=== PATIENT | female | born 1990 | race Caucasian/White ===

== ENCOUNTER 2017-12-02 19:32 | Emergency (ER) | payer MEDICAID ==
[~2017-12-02] VITALS: Ht 170.2 cm; Wt 136.4 kg
[2017-12-02 19:51] VITALS: Ht 170.2 cm; Wt 136.4 kg
[2017-12-02] MEDS ORDERED: VRAYLAR3 MG PO (19:52)
[2017-12-02] MEDS ORDERED: CELEXA40 MG PO (19:52)
[2017-12-02 21:26] LABS: APPEARANCE CLEAR (CLEAR); BILIRUBIN NEGATIVE (NEGATIVE); COLOR YELLOW (YELLOW); GLUCOSE NEGATIVE (NEGATIVE); HCG URINE NEGATIVE (NEGATIVE); KETONE NEGATIVE (NEGATIVE); NITRITE NEGATIVE (NEGATIVE); PROTEIN NEGATIVE (NEGATIVE); SPECIFIC GRAVITY 1.025 (1.005-1.020); UROBILINOGEN NORMAL (NORMAL)
[2017-12-02 21:27] LABS: RED CELLS - URINE 0-5 /hpf (0-5)
[2017-12-02 21:29] LABS: BACTERIA MODERATE /hpf (NONE SEEN); EPITHELIAL CELLS 0-5 /hpf (0-5)
[2017-12-02 21:47] LABS: BASOPHILS 0.2 % (0-2); EOSINOPHILS 1.2 % (0-7); HEMATOCRIT 39.3 % (36.0-48.0); IMMATURE GRANULOCYTES 0.1 % (0-5); LYMPHOCYTES 26.8 % (15-50); MCH 28.6 pg (26.0-34.0); MCHC 33.1 g/dL (31.0-37.0); MCV 86.6 fL (80.0-100.0); MEAN PLATELET VOLUME 8.8 fL (7.4-10.4); NEUTROPHILS 64.7 % (40-80); PLATELET COUNT 328 10x3/uL (130-400); RBC 4.54 10x6/uL (4.00-5.40); RDW 13.7 % (11.5-14.5); WBC 10.9 10x3/uL (4.8-10.8)
[2017-12-02 22:01] LABS: ALBUMIN 3.1 g/dL (3.4-5.0); ALKALINE PHOSPHATASE 70 U/L (46-116); ALT (SGPT) 48 U/L (10-68); BILIRUBIN - TOTAL 0.16 mg/dL (0.2-1.3); CALC OSMOLALITY 276 mosm/kg (275-300); CALCIUM 8.8 mg/dL (8.5-10.1); CHLORIDE - SERUM 102 mmol/L (98-107); CREATININE - SERUM 0.8 mg/dL (0.6-1.3); GLUCOSE 86 mg/dL (74-106); POTASSIUM - SERUM 3.8 mmol/L (3.5-5.1); PROTEIN - SERUM 6.8 g/dL (6.4-8.2); SODIUM 140 mmol/L (136-145); UREA NITROGEN 9 mg/dL (7-18); eGFR NON AFRICAN AMERICAN > 90 mL/min (90-120)
[2017-12-02] MEDS ORDERED: MACROBID100 MG PO (22:09)
[2017-12-02 22:43] VITALS: BP 108/57
== END 2017-12-02 22:31 | disposition home or self-care (01) ==
LOC: D.ER 19:32
PROVIDERS: Family Medicine
DX: N39.0 Urinary tract infection, site not specified (principal); N89.8 Other specified noninflammatory disorders of vagina; F17.200 Nicotine dependence, unspecified, uncomplicated

== ENCOUNTER 2019-10-24 09:12 | Day surgery (SDC) | payer MEDICARE ==
[2019-10-22 10:16] LABS: HEMATOCRIT 39.2 % (36.0-48.0); HEMOGLOBIN 12.8 g/dL (12-16); MCH 27.8 pg (26.0-34.0); MCHC 32.7 g/dL (31.0-37.0); MEAN PLATELET VOLUME 8.1 fL (7.4-10.4); RBC 4.61 10x6/uL (4.00-5.40); RDW 14.7 % (11.5-14.5); WBC 8.1 10x3/uL (4.8-10.8)
[~2019-10-24] VITALS: Ht 170.2 cm; Wt 131.5 kg
[~2019-10-24 09:12] MED LIST: CELEXA40 MG PO; LAMICTAL200 M1 PO; MACROBID100 MG PO; NORCO 7.5-3251 EACH PO; OMEPRAZOLE20 M1 PO; VRAYLAR3 MG PO
[2019-10-24 09:48] LABS: HCG URINE NEGATIVE (NEGATIVE)
[2019-10-24 09:58] VITALS: BP 141/57; Ht 170.2 cm; Wt 131.5 kg
--- NOTE | 2019-10-24 13:12 | NUR ---
OPA IN AIRWAY ON ADMIT
--- NOTE | 2019-10-24 14:55 | NUR ---
1400 IV REMOVED AND INSTRUCTIONS GIVEN. 1420 VOIDED. UP WITH WALKER.
--- NOTE | 2019-10-27 07:58 | OP ---
PATIENT NAME: KARLY REHMAN MEDICAL RECORD: [id number] LOCATION:[facility] ADMISSION DATE: SURGEON: HARMEET BROWN DO DATE OF OPERATION: 10/24/2019 PROCEDURE PERFORMED: Right knee arthroscopy with partial lateral meniscectomy. PREOPERATIVE DIAGNOSIS: Lateral meniscal tear. POSTOPERATIVE DIAGNOSIS: Lateral meniscal tear. INDICATIONS: Ms. Zimmerman is a 29-year-old female who has torn this meniscus before. She started to increase her activity and it retore, got an MRI showing the retear of the lateral meniscus in the white-white zone. I informed her of the risks of this procedure including infection, bleeding, damage to nerves or vessels, need for further surgery, continued pain, retear of the meniscus. She is aware of that as well as the risks of blood clots and even and she signed the consent. SURGEON: Harmeet Brown DO DESCRIPTION OF PROCEDURE: The patient was taken to the operative suite, laid in supine position, given 3 g Ancef, sedated, and LMA was placed. Right lower extremity was then prepped and draped in sterile fashion. Time-out was performed. Everyone was in agreement with the correct site, side, patient, and procedure. I then began by making the lateral portal with an 11-blade scalpel. Trocar entered into the joint. I then brought in the camera and inspected the suprapatellar pouch. No loose body seen there. 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 I then went to the medial compartment, established a medial portal with an 18-gauge spinal needle and 11-blade scalpel, brought in the trocar and then the probe. I probed the medial meniscus. No tear was seen in the medial compartment. Cartilage was in good repair. ACL was also inspected and in good repair. The knee was then [id number]. I went to the lateral compartment and there was a tear in the white-white zone of the lateral meniscus from the middle portion of the lateral meniscus. I brought in a biter and shaver and trimmed it back to a stable point. I then inspected the patellofemoral joint, saw the grade II chondromalacia in the patella, grade II in the trochlea as well. I then turned the water off and turned the suction on and removed excess fluid from the knee. Idalia Quinn, [employer] certified network associate, closed each portal site with 4-0 Monocryl in inverted interrupted fashion, dressed with Steri-Strips, Adaptic, 4 x 4, ABD, Webril, and Angelo wrap. She was then awakened and taken to recovery in stable condition. BLOOD LOSS: Minimal. COMPLICATIONS: None. NTS:[id number] Voice Confirmation ID: [id number] DOCUMENT ID: [id number] OPERATIVE REPORT [id number] KARLY REHMAN,HARMEET Trevino DO at 0758 CC: [id number] DICTATION DATE: 10/24/19 1416 [employer]: 10/24/191999 [facility] 10/24/[address] [facility] [address] [place] [address]
== END 2019-10-24 14:30 | disposition home or self-care (01) ==
LOC: D.OPS 09:12 → D.PAN 11:15 → D.OPS 11:15 → D.PAN 15:30 → D.OPS 15:30
PROVIDERS: Anesthesiology; ATTEND Orthopaedic Surgery
DX: S83.281A Other tear of lateral meniscus, current injury, right knee, initial encounter (principal); X58.XXXA Exposure to other specified factors, initial encounter; M25.561 Pain in right knee